=== PATIENT | male | born 1930 | race Caucasian/White ===

== ENCOUNTER → 2016-12-10 | Outpatient (REF) | payer MEDICARE ==
[2016-12-10 13:37] LABS: ALBUMIN 3.8 GM/DL (3.2-5.2); ALBUMIN/GLOBULIN RATIO 1.36 (1.00-1.93); BILIRUBIN,TOTAL 0.6 MG/DL (0.2-1.0); CALCIUM LEVEL 8.4 MG/DL (8.8-10.2); CREATININE FOR GFR 1.38 MG/DL (0.70-1.30); GLOMERULAR FILTRATION RATE 51.9 (>35); POTASSIUM SERUM 4.3 MEQ/L (3.5-5.1); TOTAL PROTEIN 6.6 GM/DL (6.4-8.2)
== END ==
LOC: M SFHCPLAZ 09:43
PROVIDERS: ATTEND Internal Medicine
DX: I10 Essential (primary) hypertension (principal); E78.00 Pure hypercholesterolemia, unspecified

== ENCOUNTER → 2016-12-11 | Outpatient (REF) | payer MEDICARE | LOC: M SFHCPLAZ 15:51 | PROVIDERS: ATTEND Internal Medicine | DX: R31.9 Hematuria, unspecified (principal); R41.89 Other symptoms and signs involving cognitive functions and awareness | CPT/HCPCS: 81001; 87086; G0463 ==

== ENCOUNTER → 2016-12-23 | Outpatient (REF) | payer MEDICARE ==
[~2016-12-23] MED LIST: ALBU17IN INH; ASPI1TAB PO; CHEL50TA PO; CRES20TA PO; FLON1SPR; LISI-538 PO; MECL12.575 PO; NITR4TASL SL; NORV5TAB PO; PLAV75TA38 PO; TONIC WATER PB; VITA500T3 PO; VOLT1GEL24 TD; ZYRT10TA2 PO
[2016-12-23 13:16] LABS: CALCIUM OXALATE CRYSTALS MODERATE
== END ==
LOC: M SMT 12:42
PROVIDERS: ATTEND Nurse Practitioner Women's Health
DX: R31.0 Gross hematuria (principal)
CPT/HCPCS: 81001; 87086; 88108; G0463

== ENCOUNTER → 2016-12-26 | Outpatient (CLI) | payer MEDICARE ==
[~2016-12-26] MED LIST changes: -ALBU17IN INH; -ASPI1TAB PO; -CHEL50TA PO; -CRES20TA PO; -FLON1SPR; +ISOVUE-370 76% 100ML VIAL (Q9967) As Ordered ONE; -LISI-538 PO; -MECL12.575 PO; -NITR4TASL SL; -NORV5TAB PO; -PLAV75TA38 PO; -TONIC WATER PB; -VITA500T3 PO; -VOLT1GEL24 TD; -ZYRT10TA2 PO
--- NOTE | 2016-12-26 12:28 | REP ---
Clinical: Gross hematuria. Technique: Axial precontrast, contrast enhanced, and delayed images of the abdomen and pelvis using 100 ml Isovue 370 intravenous contrast material with coronal and sagittal re-formations as well as MIP CT urogram. Findings: The kidneys demonstrate mild age-related cortical thinning and small focal areas of scarring as well as minimal chronic perinephric stranding. Two sub centimeter cysts are noted at the lower pole of the left kidney. There is no evidence for nephroureterolithiasis, hydroureteronephrosis, or renal mass lesion. Symmetric, appropriate enhancement and excretion patterns are noted. Bladder demonstrates a 2.3 cm polypoid soft tissue filling defect along the posterior base likely representing enlarged prostate gland. Calcifications within the prostate gland are also identified. A small flash filling hemangioma is identified along the posterior segment right lobe of liver (image 10). Liver, spleen, pancreas, gallbladder, and bilateral adrenal glands are otherwise normal. The enteric system is without obstruction or acute inflammatory process. Moderate to marked fecal stasis is suggested along with colonic diverticulosis. There is no evidence for acute diverticulitis. Normal terminal ileum and appendix are identified in the right lower quadrant. No ascites. No obvious adenopathy. Atherosclerotic changes of the aorta and vasculature noted without aneurysm. Musculoskeletal structures demonstrate age-related degenerative changes. Lung bases demonstrate chronic changes along with presumed cardiomegaly. Impression: 1. Age-related changes to the kidneys and ureters without significant process or pathology. 2. 2.5 cm polypoid soft tissue lesion along the posterior base of the bladder inseparable from the prostate gland likely representing prostatic tissue having mass effect into the bladder. Correlation with cystoscopy neurology consultation recommended. 3. Moderate fecal stasis and diffuse colonic diverticulosis. 4. Small flash filling hemangioma in the posterior segment right lobe of the liver. Signed by Navdeep Scanlon MD 12/26/2016 12:19 P
== END ==
LOC: M RAD 11:09
PROVIDERS: ATTEND Nurse Practitioner Women's Health
DX: N32.9 Bladder disorder, unspecified (principal); K57.30 Diverticulosis of large intestine without perforation or abscess without bleeding; D18.09 Hemangioma of other sites
CPT/HCPCS: 74178; Q9967

== ENCOUNTER → 2017-01-14 | Outpatient (REF) | payer MEDICARE ==
[~2017-01-14] MED LIST changes: +ALBU17IN INH; +ASPI1TAB PO; +CHEL50TA PO; +CRES20TA PO; +FLOM5CAP PO; +FLON1SPR; -ISOVUE-370 76% 100ML VIAL (Q9967) As Ordered ONE; +LISI-538 PO; +MECL12.575 PO; +NITR4TASL SL; +NORV5TAB PO; +PLAV75TA38 PO; +TONIC WATER PB; +TYLE650T35 PO; +VITA500T3 PO; +VOLT1GEL24 TD; +ZYRT10TA2 PO
== END ==
LOC: M LAB REF 16:07
PROVIDERS: ATTEND Surgery
DX: C44.612 Basal cell carcinoma of skin of right upper limb, including shoulder (principal)

== ENCOUNTER → 2017-01-15 | Outpatient (REF) | payer MEDICARE ==
[2017-01-15 12:44] LABS: CALCIUM OXALATE CRYSTALS SMALL; MEAN CORPUSCULAR HEMOGLOBIN 31.4 pg (27.0-33.0); MEAN CORPUSCULAR HGB CONC 32.5 g/dl (32.0-36.5); MEAN CORPUSCULAR VOLUME 96.7 fl (80.0-96.0); RED CELL DISTRIBUTION WIDTH 12.1 % (11.5-14.5); WHITE BLOOD COUNT 6.8 K/mm3 (4.0-10.0)
[2017-01-15 12:52] LABS: INR 1.11
[2017-01-15 14:27] LABS: CALCIUM LEVEL 8.8 MG/DL (8.8-10.2); CREATININE FOR GFR 1.32 MG/DL (0.70-1.30); GLOMERULAR FILTRATION RATE 54.5 (>35); POTASSIUM SERUM 4.4 MEQ/L (3.5-5.1)
== END ==
LOC: M LABSMT 09:40
PROVIDERS: ATTEND Urology
DX: N32.89 Other specified disorders of bladder (principal); Z79.899 Other long term (current) drug therapy

== ENCOUNTER → 2017-01-17 | Outpatient (CLI) | payer MEDICARE ==
--- NOTE | 2017-01-17 10:04 | REP ---
Chest two views HISTORY: Bladder mass Comparison: 05/22/2014 The lungs are clear. The heart is normal in size. The pulmonary vasculature is normal in appearance. There are old right rib fractures. Degenerative change is present in the thoracic spine. IMPRESSION: No acute disease. Signed by Anuj Mock MD 01/17/2017 09:56 A
== END ==
LOC: M ADAMS 09:27
PROVIDERS: ATTEND Urology
DX: N32.89 Other specified disorders of bladder (principal)

== ENCOUNTER → 2017-01-29 | Outpatient (REF) | payer MEDICARE | LOC: M LABSMT 11:19 | PROVIDERS: ATTEND Urology | DX: N39.0 Urinary tract infection, site not specified (principal) ==

== ENCOUNTER → 2017-01-30 | Day surgery (SDC) | payer MEDICARE ==
[~2017-01-30] VITALS: Ht 170.2 cm; Wt 74.8 kg
[~2017-01-30] MED LIST changes: +ACETAMINOPHEN 650MG ER TAB (TYLENOL ARTHRITIS) PO SCH; +ACETAMINOPHEN TAB 650MG DOSE (2X325MG) As Ordered ONE; +CIPROFLOXACIN 500 MG TAB PO SCH; +LISINOPRIL 20 MG TAB PO ONE; +LR 1,000 ML IV SCH; +MIDAZOLAM INJ 2 MG/2 ML VIAL (J2250) As Ordered ONE; +ONDANSETRON 4MG/2ML VIAL (J2405) As Ordered ONE; +ONDANSETRON 4MG/2ML VIAL (J2405) IV PRN; +PROPOFOL 200 MG/20 ML VIAL As Ordered ONE; +SUGAMMADEX SODIUM 500 MG/5 ML VIAL (BRIDION) As Ordered ONE; +amLODIPine 5 MG TAB PO ONE; +dexameTHASONE 4 MG/ML 1ML VIAL (J1100) As Ordered ONE; +fentaNYL 100 MCG/2 ML INJECTION (J3010) As Ordered ONE; +fentaNYL 100 MCG/2 ML INJECTION (J3010) IV PRN
[2017-01-30 14:45] VITALS: BP 150/70
[2017-01-30 16:00] VITALS: BP 176/79
--- NOTE | 2017-01-31 00:40 | ECGEPIP ---
Stationary ECG Study [facility] Test Date: 2017-01-30 Pat Name: JYOTI POSEY Department: Room: - Gender: M Fabrication Inspector: : [id number] Requested By: Kuldeep Chase Order Number: [id number] Reading MD: Artur Rockwell Measurements Intervals [place] Rate: 50 P: 38 HI: 184 QRS: 57 QRSD: 108 T: 27 QT: 448 QTc: 411 Interpretive Statements SINUS BRADYCARDIA WITH OCCASIONAL SUPRAVENTRICULAR PREMATURE COMPLEXES MINIMAL ST DEPRESSION LAST EKG ON 05/23/2014 AT 6:14:24, NO SIGNIFICANT CHANGES BUT PACs Electronically Signed On 01-31-2017 0:40:07 EDT by Artur Rockwell
--- NOTE | 2017-01-31 06:29 | RO ---
DATE OF PROCEDURE: 01/30/2017 PREOPERATIVE DIAGNOSIS: Bladder tumor. POSTOPERATIVE DIAGNOSIS: Bladder tumor. PROCEDURE: Cystoscopy, plus transurethral resection of bladder tumor (TURBT), plus urethral dilatation. SURGEON: Dr. Mukund Peraza VASC TECH: None. ANESTHESIA: General. COMPLICATIONS: None. ESTIMATED BLOOD LOSS: N/A. 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 For this reason, he has consented for cystoscopy plus transurethral resection of bladder tumor (TURBT). PROCEDURE DESCRIPTION: In a patient under general anesthesia in supine modified low lithotomy position, after prepping and draping the area of concern which included the entire genitalia and abdomen, we started by introducing a cystoscope 21 Tajik in diameter with a 30 degrees lens under videoscopic guidance. The fossa navicularis could not be passed, for this reason, we grabbed Reshma sounds and dilated the urethra to about 30 Charriere. After this, we could pass a cystoscope. The fossa navicularis, penile urethra, bulbar urethra and membranous urethra were totally normal. The prostatic urethra had lateral lobes touching, mild small middle lobe in the prostate also. The ureteral orifices were seen. There was a 2 cm papillary tumor on the right ureteral orifice and there was another tumor in the bladder. No trabeculations. For this reason, we changed the cystoscopy for the resectoscope, bipolar resection and under normal saline resected the bladder tumor. We fulgurated the base of the bladder tumor and then with Gloriaik evacuator, we got the bladder tumor out and sent it for permanent pathology analysis. We then extracted the resectoscope and placed a #22-Tajik Gentile catheter and inflated the balloon to 20 mL and plugged the third way and put it to gravity. PLAN: The patient will go home today with antibiotic and pain medication. Followup in 5 days for a voiding trial.
== END | disposition home or self-care (01) ==
LOC: M SDC 08:36
PROVIDERS: ATTEND Urology
DX: N32.89 Other specified disorders of bladder (principal); R31.0 Gross hematuria; I12.9 Hypertensive chronic kidney disease with stage 1 through stage 4 chronic kidney disease, or unspecified chronic kidney disease; N18.3 Chronic kidney disease, stage 3 (moderate); R41.89 Other symptoms and signs involving cognitive functions and awareness; I25.810 Atherosclerosis of coronary artery bypass graft(s) without angina pectoris; M15.0 Primary generalized (osteo)arthritis; E78.00 Pure hypercholesterolemia, unspecified; J45.909 Unspecified asthma, uncomplicated; R06.02 Shortness of breath; G62.9 Polyneuropathy, unspecified; J30.9 Allergic rhinitis, unspecified; R91.8 Other nonspecific abnormal finding of lung field; Z88.5 Allergy status to narcotic agent; Z79.899 Other long term (current) drug therapy; Z79.82 Long term (current) use of aspirin; Z79.01 Long term (current) use of anticoagulants; Z86.73 Personal history of transient ischemic attack (TIA), and cerebral infarction without residual deficits; Z96.1 Presence of intraocular lens; Z85.828 Personal history of other malignant neoplasm of skin; Z95.5 Presence of coronary angioplasty implant and graft
CPT/HCPCS: 36415; 52235; 86850; 86900; 86901; 88305; 93005; J0690; J1100; J2250; J2405; J3010

== ENCOUNTER → 2017-02-13 | Outpatient (REF) | payer MEDICARE ==
[~2017-02-13] MED LIST changes: -ACETAMINOPHEN 650MG ER TAB (TYLENOL ARTHRITIS) PO SCH; -ACETAMINOPHEN TAB 650MG DOSE (2X325MG) As Ordered ONE; -CIPROFLOXACIN 500 MG TAB PO SCH; -LISINOPRIL 20 MG TAB PO ONE; -LR 1,000 ML IV SCH; -MIDAZOLAM INJ 2 MG/2 ML VIAL (J2250) As Ordered ONE; -ONDANSETRON 4MG/2ML VIAL (J2405) As Ordered ONE; -ONDANSETRON 4MG/2ML VIAL (J2405) IV PRN; +PLAV1TAB2 PO; -PLAV75TA38 PO; -PROPOFOL 200 MG/20 ML VIAL As Ordered ONE; -SUGAMMADEX SODIUM 500 MG/5 ML VIAL (BRIDION) As Ordered ONE; +VOLT1GEL15 TD; -VOLT1GEL24 TD; -amLODIPine 5 MG TAB PO ONE; -dexameTHASONE 4 MG/ML 1ML VIAL (J1100) As Ordered ONE; -fentaNYL 100 MCG/2 ML INJECTION (J3010) As Ordered ONE; -fentaNYL 100 MCG/2 ML INJECTION (J3010) IV PRN
[2017-02-13 12:46] LABS: MEAN CORPUSCULAR HEMOGLOBIN 31.6 pg (27.0-33.0); MEAN CORPUSCULAR HGB CONC 33.3 g/dl (32.0-36.5); MEAN CORPUSCULAR VOLUME 95.1 fl (80.0-96.0); RED CELL DISTRIBUTION WIDTH 12.3 % (11.5-14.5); WHITE BLOOD COUNT 6.2 K/mm3 (4.0-10.0)
[2017-02-13 13:02] LABS: ALBUMIN 3.7 GM/DL (3.2-5.2); ALBUMIN/GLOBULIN RATIO 1.23 (1.00-1.93); BILIRUBIN,TOTAL 0.5 MG/DL (0.2-1.0); CALCIUM LEVEL 8.8 MG/DL (8.8-10.2); CREATININE FOR GFR 1.4 MG/DL (0.70-1.30); GLOMERULAR FILTRATION RATE 50.9 (>35); MAGNESIUM LEVEL 2.4 MG/DL (1.8-2.4); POTASSIUM SERUM 4.3 MEQ/L (3.5-5.1); TOTAL PROTEIN 6.7 GM/DL (6.4-8.2)
== END ==
LOC: M SFHCPLAZ 10:51
PROVIDERS: ATTEND Internal Medicine
DX: I12.9 Hypertensive chronic kidney disease with stage 1 through stage 4 chronic kidney disease, or unspecified chronic kidney disease (principal); N18.3 Chronic kidney disease, stage 3 (moderate)

== ENCOUNTER → 2017-03-13 | Outpatient (REF) | payer MEDICARE | LOC: M LAB REF 17:20 | PROVIDERS: ATTEND Physician Assistant | DX: R19.7 Diarrhea, unspecified (principal) ==

== ENCOUNTER → 2017-05-19 | Outpatient (REF) | payer MEDICARE ==
[2017-05-19 13:32] LABS: MEAN CORPUSCULAR HEMOGLOBIN 31.8 pg (27.0-33.0); MEAN CORPUSCULAR HGB CONC 33.1 g/dl (32.0-36.5); MEAN CORPUSCULAR VOLUME 96.2 fl (80.0-96.0)
[2017-05-19 13:35] LABS: ALBUMIN 3.8 GM/DL (3.2-5.2); ALBUMIN/GLOBULIN RATIO 1.36 (1.00-1.93); BILIRUBIN,TOTAL 0.5 MG/DL (0.2-1.0); CALCIUM LEVEL 9.3 MG/DL (8.8-10.2); CREATININE FOR GFR 1.39 MG/DL (0.70-1.30); GLOMERULAR FILTRATION RATE 51.3 (>35); MAGNESIUM LEVEL 2.7 MG/DL (1.8-2.4); POTASSIUM SERUM 4.3 MEQ/L (3.5-5.1); TOTAL PROTEIN 6.6 GM/DL (6.4-8.2)
== END ==
LOC: M SFHCADAM 10:10
PROVIDERS: ATTEND Internal Medicine
DX: I12.9 Hypertensive chronic kidney disease with stage 1 through stage 4 chronic kidney disease, or unspecified chronic kidney disease (principal); N18.3 Chronic kidney disease, stage 3 (moderate)

== ENCOUNTER → 2017-12-09 | Outpatient (REF) | payer MEDICARE ==
[2017-12-09 13:19] LABS: HEMATOCRIT 48.4 % (42.0-52.0); HEMOGLOBIN 15.4 g/dl (13.5-17.5); MEAN CORPUSCULAR HEMOGLOBIN 30.7 pg (27.0-33.0); MEAN CORPUSCULAR HGB CONC 31.8 g/dl (32.0-36.5); MEAN CORPUSCULAR VOLUME 96.6 fl (80.0-96.0); PLATELET COUNT, AUTOMATED 198 10^3/uL (150-450); RED BLOOD COUNT 5.01 10^6/uL (4.30-6.10); RED CELL DISTRIBUTION WIDTH 12.1 % (11.5-14.5); WHITE BLOOD COUNT 6.2 10^3/uL (4.0-10.0)
[2017-12-09 13:47] LABS: ALBUMIN 3.9 GM/DL (3.2-5.2); ALBUMIN/GLOBULIN RATIO 1.39 (1.00-1.93); ALKALINE PHOSPHATASE 103 U/L (45-117); ALT/SGPT 28 U/L (12-78); ANION GAP 10 MEQ/L (8-16); AST/SGOT 24 U/L (7-37); BILIRUBIN,TOTAL 0.8 MG/DL (0.2-1.0); BLOOD UREA NITROGEN 28 MG/DL (7-18); CALCIUM LEVEL 8.6 MG/DL (8.8-10.2); CARBON DIOXIDE LEVEL 28 MEQ/L (21-32); CHLORIDE LEVEL 109 MEQ/L (98-107); CHOLESTEROL LEVEL 111 MG/DL (<200); CHOLESTEROL RISK RATIO 2.312 (<5); CREATININE FOR GFR 1.52 MG/DL (0.70-1.30); GLOMERULAR FILTRATION RATE 46.3 (>35); GLUCOSE, FASTING 108 MG/DL (70-100); HDL CHOLESTEROL 48 MG/DL (>40); MAGNESIUM LEVEL 2.6 MG/DL (1.8-2.4); NON-HDL-C 63 MG/DL; POTASSIUM SERUM 4.1 MEQ/L (3.5-5.1); SODIUM LEVEL 147 MEQ/L (136-145); TOTAL PROTEIN 6.7 GM/DL (6.4-8.2); TRIGLYCERIDES LEVEL 125 MG/DL (<150)
[2017-12-09 13:50] LABS: PTH INTACT 52.2 PG/ML (18.5-88.0)
== END ==
LOC: M SFHCADAM 09:19
DX: G62.9 Polyneuropathy, unspecified (principal); I12.9 Hypertensive chronic kidney disease with stage 1 through stage 4 chronic kidney disease, or unspecified chronic kidney disease; E78.00 Pure hypercholesterolemia, unspecified; N18.3 Chronic kidney disease, stage 3 (moderate)
CPT/HCPCS: 83735

== ENCOUNTER → 2018-05-02 | Outpatient (CLI) | payer MEDICARE ==
[2018-05-02 13:50] LABS: CONTROL LINE MONO RF C INT CTR LINE PRESENT; MONO REFLEX EBV COMP NEGATIVE (NEGATIVE)
[2018-05-02 14:06] LABS: ALBUMIN 3.7 GM/DL (3.2-5.2); ALBUMIN/GLOBULIN RATIO 1.28 (1.00-1.93); ALKALINE PHOSPHATASE 90 U/L (45-117); ALT/SGPT 23 U/L (12-78); ANION GAP 10 MEQ/L (8-16); AST/SGOT 16 U/L (7-37); BILIRUBIN,TOTAL 0.7 MG/DL (0.2-1.0); BLOOD UREA NITROGEN 28 MG/DL (7-18); CALCIUM LEVEL 8.4 MG/DL (8.8-10.2); CARBON DIOXIDE LEVEL 26 MEQ/L (21-32); CHLORIDE LEVEL 109 MEQ/L (98-107); FREE T4 0.99 NG/DL (0.76-1.46); GLOMERULAR FILTRATION RATE 50.8 (>35); GLUCOSE, FASTING 168 MG/DL (70-100); POTASSIUM SERUM 4.2 MEQ/L (3.5-5.1); SODIUM LEVEL 145 MEQ/L (136-145); TOTAL PROTEIN 6.6 GM/DL (6.4-8.2)
[2018-05-02 14:07] LABS: BASO % 0.3 % (0.0-1.0); EOS # 0.1 10^3/uL (0.0-0.50); EOS % 0.3 % (0.0-3.0); HEMATOCRIT 43.2 % (42.0-52.0); HEMOGLOBIN 13.7 g/dl (13.5-17.5); IMMATURE GRANULOCYTE % 0.4 % (0-3.0); LYMPH # 0.5 10^3/uL (1.5-4.5); LYMPH % 3.4 % (24.0-44.0); MEAN CORPUSCULAR HGB CONC 31.7 g/dl (32.0-36.5); MEAN CORPUSCULAR VOLUME 97.7 fl (80.0-96.0); MONO # 1.2 10^3/uL (0.0-0.8); MONO % 7.9 % (0.0-5.0); NEUTROPHILS # 12.8 10^3/uL (1.8-7.7); NEUTROPHILS % 87.7 % (36.0-66.0); PLATELET COUNT, AUTOMATED 171 10^3/uL (150-450); RED BLOOD COUNT 4.42 10^6/uL (4.30-6.10); RED CELL DISTRIBUTION WIDTH 11.9 % (11.5-14.5); WHITE BLOOD COUNT 14.6 10^3/uL (4.0-10.0)
[2018-05-05 14:27] LABS: EBV VIRAL CAPSID AG IgM <36.0 U/mL (0.0-35.9)
[2018-05-05 14:27] LABS: EBV AB TO NUCLEAR ANTIGEN <18.0 U/mL (0.0-17.9)
[2018-05-06 00:07] LABS: Lyme Disease IgG/IgM Antibodie <0.91 ISR (0.00-0.90); Lyme Disease IgM Ab Quantitati <0.80 index (0.00-0.79)
== END ==
LOC: M ADAMS 10:15
DX: R42 Dizziness and giddiness (principal); Z79.899 Other long term (current) drug therapy
CPT/HCPCS: 84443

== ENCOUNTER → 2018-05-13 | Outpatient (REF) | payer MEDICARE ==
[2018-05-13 14:30] LABS: ALBUMIN 3.5 GM/DL (3.2-5.2); ALBUMIN/GLOBULIN RATIO 1.17 (1.00-1.93); ALKALINE PHOSPHATASE 94 U/L (45-117); ALT/SGPT 40 U/L (12-78); ANION GAP 7 MEQ/L (8-16); AST/SGOT 27 U/L (7-37); BILIRUBIN,TOTAL 0.6 MG/DL (0.2-1.0); BLOOD UREA NITROGEN 29 MG/DL (7-18); CALCIUM LEVEL 8.2 MG/DL (8.8-10.2); CARBON DIOXIDE LEVEL 29 MEQ/L (21-32); CHLORIDE LEVEL 110 MEQ/L (98-107); CREATININE FOR GFR 1.42 MG/DL (0.70-1.30); GLUCOSE, FASTING 98 MG/DL (70-100); MAGNESIUM LEVEL 2.3 MG/DL (1.8-2.4); POTASSIUM SERUM 4.2 MEQ/L (3.5-5.1); SODIUM LEVEL 146 MEQ/L (136-145); TOTAL PROTEIN 6.5 GM/DL (6.4-8.2)
== END ==
LOC: M SFHCADAM 08:59
DX: R41.89 Other symptoms and signs involving cognitive functions and awareness (principal); E07.9 Disorder of thyroid, unspecified
CPT/HCPCS: 83735